=== PATIENT | male | born 1925 | race Caucasian/White ===

== ENCOUNTER 2017-10-22 18:36 | Emergency (ER) | payer MEDICARE ==
[2017-03-05 09:12] VITALS: Wt 74.8 kg
[2017-10-22] MEDS ORDERED: NS(*) 0.9% 500 ML BAG 500 ML IV ONE (18:40)
--- NOTE | 2017-10-22 18:40 | ER Report ---
History and Physical Time Seen By MD: 18:35 HPI/ROS CHIEF COMPLAINT: Dizziness HISTORY OF PRESENT ILLNESS: 89-year-old male brought in by EMS from [employer] [facility] where he was having food. He began to feel dizzy. He went outside to get some air. Patient denies syncope. Patient denies history of seizures. He has history of previous CVAs. EMS notes no change in the stroke scale. He was alert and oriented on their arrival. Patient voices no other complaints. No chest pain, no shortness of breath. Patient has dementia. He's in good spirits and interactive. EMS noted. Borderline hypotension. Patient was given a fluid bolus. REVIEW OF SYSTEMS: Respiratory: No cough, no dyspnea. Cardiovascular: No chest pain, no palpitations. Gastrointestinal: No vomiting, no abdominal pain. Musculoskeletal: No back pain. Allergies: Coded Allergies: Penicillins (Verified Allergy, Unknown, 10/22/17) Home Meds Active Scripts Sodium Chloride (SODIUM CHLORIDE) 1 Gm Tab, 1 TAB PO DAILY, #90 TAB 4 Refills Prov:ELIU BUTLER MD 08/22/17 Linaclotide (Linzess) 72 Mcg Capsule, 1 CAPSULE PO DAILY for 30 Days, #30 CAP 4 Refills Prov:ELIU BUTLER MD 07/31/17 Fluticasone Prop 50 Mcg Ns (FLONASE 50 MCG NS) 16 Gm Girard.susp, 2 SPRAYS NS QDAY for 30 Days, #1 BOT 4 Refills Prov:ELIU BUTLER MD 06/20/17 Tamsulosin Hcl (TAMSULOSIN HCL) 0.4 Mg Cap.er.24h, 1 CAP PO BID, #180 CAP 1 Refill Prov:ELIU BUTLER MD 05/02/17 Melatonin/Pyridoxine HCl (B6) (Melatonin 3 mg Tablet) 1 Each Tablet, 3 MG PO QHS for 90 Days, #90 TAB 6 Refills Prov:ELIU BUTLER MD 04/10/17 Reported Medications Loperamide HCl (Imodium A-D) 2 Mg Capsule, 2 CAP PO PRN Y for DIARRHEA 10/22/17 Aspirin (ASPIRIN) 325 Mg Tablet, 325 MG PO Q4-6H Y for chest pain, TAB 10/22/17 Lactose-Free Food (BOOST) 237 Ml Liquid, 1 BOTTLE PO DAILY 04/18/17 Docusate Sodium (COLACE) 100 Mg Capsule, 50 MG PO DAILY, CAPSULE 02/20/17 Calcium Carbonate (TUMS) 200 Mg Tab.chew, 1-2 TAB PO Q2H Y for HEARTBURN, TAB.CHEW 02/20/17 Mag Hydrox/Al Hydrox/Simeth (MAALOX MAXIMUM STRENGTH SUSP) 355 Ml Oral.susp, 15 ML PO Q4H Y for gastric distress 01/09/17 Magnesium Hydroxide (MILK OF MAGNESIA) 400 Mg/5 Ml Oral.susp, 15-30 ML PO BID Y for CONSTIPATION, BOTTLE 01/09/17 Dextran 70/Hypromellose (Natural Balance Tears Eye Drop) 0.1 %-0.3 % Drops, 1 DROP OP PRN Y for dry eyes 01/09/17 Acetaminophen (TYLENOL) 325 Mg Tablet, 1-2 TAB PO Q4H Y for PAIN OR FEVER 100 OR GREATER, TAB 01/09/17 Cholecalciferol (Vitamin D3) (VITAMIN D) 2,000 Unit Tablet, 2 TAB PO DAILY take 2 tablets to equal 4000 units q day 01/09/17 Levothyroxine Sodium (LEVOTHYROXINE SODIUM) 75 Mcg Tablet, 75 MCG PO QDAY 06/14/13 Pravastatin Sodium (PRAVASTATIN SODIUM) 40 Mg Tablet, 40 MG PO QDAY 06/14/13 Febuxostat (ULORIC) 40 Mg Tablet, 40 MG PO DAILY 06/14/13 Multivitamins W-Minerals/Lut (Centrum Silver Tablet) 1 Tab Tablet, 1 TAB PO DAILY 09/26/10 Past Medical/Surgical History Past, Family, & Social History Past Medical History Reviewed: Yes Neurologic: Reports hx of: dementia (mild) transient ischemic attack (x2) Cardiovascular: Reports hx of: heart block (now has pacer) Musculoskeletal: Reports hx of: gout (no recent attacks, on uloric) Cardiovascular: Reports hx of: pacemaker Reviewed Nurses Notes: Yes Old Medical Records Reviewed: Yes Hx Smoking: No Smoking Status: Former Smoker Hx Substance Use Disorder: No Constitutional Vital Sign - Last 24 Hours 10/22/17 10/22/17 10/22/17 10/22/17 18:39 18:51 18:56 19:29 Temp 97.4 Pulse 60 61 61 Resp 18 16 14 B/P (MAP) 114/98 117/69 (85) Pulse Ox 94 90 95 O2 Delivery Room Air 10/22/17 10/22/17 10/22/17 10/22/17 19:34 19:49 20:00 20:04 Pulse 60 67 54 Resp 15 17 27 B/P (MAP) 103/67 (79) Pulse Ox 89 90 87 10/22/17 10/22/17 10/22/17 10/22/17 20:09 20:24 20:30 20:39 Pulse 60 60 66 Resp 8 20 21 B/P (MAP) 107/71 (83) Pulse Ox 88 87 86 10/22/17 10/22/17 20:52 20:54 Pulse ??? B/P (MAP) 113/71 (85) Pulse Ox 94 Physical Exam General Appearance: The patient is alert, has no immediate need for airway protection and no current signs of toxicity. Alert and oriented 3, vital signs stable, afebrile, pulse ox normal HEENT: Pupils equal and round no injection. TMs normal, oropharynx without redness or exudate, mucous. Membranes are moist Respiratory: Chest is non tender, lungs are clear to auscultation. Cardiac: regular rate and rhythm Gastrointestinal: Abdomen is soft and non tender, no masses, bowel sounds normal. Musculoskeletal: Neck: Neck is supple and non tender. No lymphadenopathy, no JVD Extremities have full range of motion and are non tender. No edema, no calf tenderness Skin: No rashes or lesions. DIFFERENTIAL DIAGNOSIS: After history and physical exam differential diagnosis was considered for altered mental status including but not limited to hypoglycemia, infectious process, electrolyte abnormality, near syncope, hypotension, head injury and intoxicants. Medical Decision Making Data Points Result Diagram: 10/22/17182910/22/17 183 Laboratory Hematology Test 10/22/17 18:30 10/22/17 19:32 Red Blood Count 5.19 M/uL (4.00-5.60) Mean Corpuscular Volume 87.5 fL (80.0-96.0) Mean Corpuscular Hemoglobin 30.0 pg (26.0-33.0) Mean Corpuscular Hemoglobin Concent 34.3 g/dL (32.0-36.0) Red Cell Distribution Width 14.3 % (11.5-14.5) Mean Platelet Volume 9.1 fL (7.2-11.1) Neutrophils (%) (Auto) 65.7 % (39.4-72.5) Lymphocytes (%) (Auto) 17.6 % (17.6-49.6) Monocytes (%) (Auto) 11.6 % (4.1-12.4) Eosinophils (%) (Auto) 4.4 % (0.4-6.7) Basophils (%) (Auto) 0.7 % (0.3-1.4) Nucleated RBC Relative Count (auto) 0.0 /100WBC Neutrophils # (Auto) 5.3 K/uL (2.0-7.4) Lymphocytes # (Auto) 1.4 K/uL (1.3-3.6) Monocytes # (Auto) 0.9 K/uL (0.3-1.0) Eosinophils # (Auto) 0.4 K/uL (0.0-0.5) Basophils # (Auto) 0.1 K/uL (0.0-0.1) Nucleated RBC Absolute Count (auto) 0.00 K/uL Sodium Level 139 mmol/L (137-145) Potassium Level 3.9 mmol/L (3.5-5.0) Chloride Level 100 mmol/L (98-107) Carbon Dioxide Level 25 mmol/L (22-30) Blood Urea Nitrogen 25 mg/dl (9-21) Creatinine 1.80 mg/dl (0.66-1.25) Glomerular Filtration Rate Calc 35.7 Random Glucose 92 mg/dl (75-110) Calcium Level 9.4 mg/dl (8.4-10.2) Total Bilirubin 0.3 mg/dl (0.2-1.3) Aspartate Amino Transf (AST/SGOT) 29 U/L (0-35) Alanine Aminotransferase (ALT/SGPT) 27 U/L (0-56) Alkaline Phosphatase 65 U/L (0-126) Troponin I < 0.012 ng/ml Total Protein 7.1 g/dl (6.3-8.2) Albumin 3.9 g/dl (3.5-5.0) Urine Color Yellow Urine Clarity Slightly-cloudy Urine pH 5.0 pH (4.8-9.5) Urine Specific [place] 1.012 Urine Protein 30 mg/dL (NEGATIVE) Urine Glucose (UA) Negative mg/dL (NEGATIVE) Urine Ketones Negative mg/dL (NEGATIVE) Urine Blood Negative (NEGATIVE) Urine Nitrite Negative (NEGATIVE) Urine Bilirubin Negative (NEGATIVE) Urine Urobilinogen Negative mg/dL (0.2-1.9) Urine Leukocyte Esterase Trace (NEGATIVE) Urine RBC 1 /HPF (0-2/HPF) Urine WBC 3 /HPF (0-5/HPF) Urine Squamous Epithelial Cells Moderate /LPF (</=FEW) Urine Bacteria Negative /HPF (NONE-FEW) Urine Hyaline Casts Few /LPF (NONE-FEW) Urine Mucus Few /HPF (NONE-FEW) Chemistry Test 10/22/17 18:30 10/22/17 19:32 White Blood Count 8.1 k/uL (4.5-11.0) Red Blood Count 5.19 M/uL (4.00-5.60) Hemoglobin 15.6 g/dL (14.0-18.0) Hematocrit 45.4 % (42.0-52.0) Mean Corpuscular Volume 87.5 fL (80.0-96.0) Mean Corpuscular Hemoglobin 30.0 pg (26.0-33.0) Mean Corpuscular Hemoglobin Concent 34.3 g/dL (32.0-36.0) Red Cell Distribution Width 14.3 % (11.5-14.5) Platelet Count 211 K/uL (150-450) Mean Platelet Volume 9.1 fL (7.2-11.1) Neutrophils (%) (Auto) 65.7 % (39.4-72.5) Lymphocytes (%) (Auto) 17.6 % (17.6-49.6) Monocytes (%) (Auto) 11.6 % (4.1-12.4) Eosinophils (%) (Auto) 4.4 % (0.4-6.7) Basophils (%) (Auto) 0.7 % (0.3-1.4) Nucleated RBC Relative Count (auto) 0.0 /100WBC Neutrophils # (Auto) 5.3 K/uL (2.0-7.4) Lymphocytes # (Auto) 1.4 K/uL (1.3-3.6) Monocytes # (Auto) 0.9 K/uL (0.3-1.0) Eosinophils # (Auto) 0.4 K/uL (0.0-0.5) Basophils # (Auto) 0.1 K/uL (0.0-0.1) Nucleated RBC Absolute Count (auto) 0.00 K/uL Glomerular Filtration Rate Calc 35.7 Calcium Level 9.4 mg/dl (8.4-10.2) Total Bilirubin 0.3 mg/dl (0.2-1.3) Aspartate Amino Transf (AST/SGOT) 29 U/L (0-35) Alanine Aminotransferase (ALT/SGPT) 27 U/L (0-56) Alkaline Phosphatase 65 U/L (0-126) Troponin I < 0.012 ng/ml Total Protein 7.1 g/dl (6.3-8.2) Albumin 3.9 g/dl (3.5-5.0) Urine Color Yellow Urine Clarity Slightly-cloudy Urine pH 5.0 pH (4.8-9.5) Urine Specific [place] 1.012 Urine Protein 30 mg/dL (NEGATIVE) Urine Glucose (UA) Negative mg/dL (NEGATIVE) Urine Ketones Negative mg/dL (NEGATIVE) Urine Blood Negative (NEGATIVE) Urine Nitrite Negative (NEGATIVE) Urine Bilirubin Negative (NEGATIVE) Urine Urobilinogen Negative mg/dL (0.2-1.9) Urine Leukocyte Esterase Trace (NEGATIVE) Urine RBC 1 /HPF (0-2/HPF) Urine WBC 3 /HPF (0-5/HPF) Urine Squamous Epithelial Cells Moderate /LPF (</=FEW) Urine Bacteria Negative /HPF (NONE-FEW) Urine Hyaline Casts Few /LPF (NONE-FEW) Urine Mucus Few /HPF (NONE-FEW) Urinalysis Test 10/22/17 19:32 Urine Color Yellow Urine Clarity Slightly-cloudy Urine pH 5.0 pH (4.8-9.5) Urine Specific [place] 1.012 Urine Protein 30 mg/dL (NEGATIVE) Urine Glucose (UA) Negative mg/dL (NEGATIVE) Urine Ketones Negative mg/dL (NEGATIVE) Urine Blood Negative (NEGATIVE) Urine Nitrite Negative (NEGATIVE) Urine Bilirubin Negative (NEGATIVE) Urine Urobilinogen Negative mg/dL (0.2-1.9) Urine Leukocyte Esterase Trace (NEGATIVE) Urine RBC 1 /HPF (0-2/HPF) Urine WBC 3 /HPF (0-5/HPF) Urine Squamous Epithelial Cells Moderate /LPF (</=FEW) Urine Bacteria Negative /HPF (NONE-FEW) Urine Hyaline Casts Few /LPF (NONE-FEW) Urine Mucus Few /HPF (NONE-FEW) EKG/Imaging EKG Interpretation 12 lead EK Rhythm: AV sequential pacemaker, rate 60 bpm Keno: normal QRS: normal ST segments: normal, on comparison to previous EKG dated 02/19/17, no significant change noted Monitor Interpretation: Other Imaging X-ray: Single view portable chest x-ray was obtained. I viewed the images myself on the PACS system. My interpretation of the images is: No infiltrate, no effusion, normal mediastinum, intact pacemaker, comparison to previous chest x-ray 01/09/17, no significant change. The radiologist interpretation had no clinically significant variation from this interpretation. Results: CT scan of the head was obtained. The results of the study are CT Head without contrast Indication: Dizziness. History of previous CVA. Comparison: 02/21/2017. Technique: Axial CT images were obtained through the brain from the skull base to the vertex without administration of IV contrast. Reformatted coronal and sagittal images were also obtained. One of the following dose optimization techniques was utilized in the performance of this exam: automated exposure control; adjustment of the mA and/ or kV according to the patient's size; or use of an iterative reconstruction technique. Specific details can be referenced in the facility's radiology CT exam operational policy. Findings: No evidence of mass, mass effect, or midline shift. No acute intracranial hemorrhage or acute territorial infarction. No extra-axial fluid collection or hydrocephalus. Age-related cerebral atrophy. Periventricular white matter ischemic changes consistent small vessel disease. Each occipital lobe does show area of decreased attenuation consistent previous ischemic event. Small previous ischemic event in the right frontal lobe. The appearance has not changed from previous exam. Resolution the previous right subdural fluid hematoma. The cee/white matter differentiation appears normal. Small bowel previous lacunar infarct is again seen in the left basal ganglia. Bony structures show no fractures or lesions. Leftward deviation nasal septum. Mild mucosal thickening seen in the inferior aspect of both maxillary sinuses which appears similar. The remaining sinuses and mastoids visualized are clear. IMPRESSION: 1. Stable exam showing no acute abnormality. 2. Continued mild bilateral maxillary sinus disease. The study was read by the radiologist. I viewed the images myself on the PACS system. ED Course/Re-evaluation Clinical Indication for ER IV: Hydration, IV Access ED Course Patient was admitted to an examination room. H&P was done. The differential diagnoses was considered. On clinical examination. Patient has a nonfocal neurologic examination. He is alert and oriented 3. He is in good spirits. He voices no complaints. He did note some dizziness. He is unsure if he had another stroke. Stroke scale was negative by EMS. It was negative here. On his examination. Diagnostic study EKG, chest x-ray and head CT were performed which were all unremarkable. Patient has some baseline renal insufficiency and maybe a touch of dehydration. Decision to Disposition Date: Oct 22, 2017 Decision to Disposition Time: 19:37 Depart Departure Latest Vital Signs Vital Signs Date Time Temp Pulse Resp B/P (MAP) Pulse Ox O2 Delivery O2 Flow Rate FiO2 10/22/17 20:54 ??? 94 10/22/17 20:52 113/71 (85) 10/22/17 20:39 21 10/22/17 18:39 97.4 Room Air Impression: Primary Impression: Lightheadedness Additional Impressions: Mild dehydration Chronic renal insufficiency Pacemaker History of CVA (cerebrovascular accident) Condition: Improved Disposition: HOME OR SELF-CARE Referrals: ELIU BUTLER MD (PCP) Patient Instructions: Dizziness (ED) Additional Instructions: Follow-up with your doctor this week if her symptoms recur Problem Qualifiers Additional Impressions: Chronic renal insufficiency Chronic kidney disease stage: unspecified stage Qualified Codes: N18.9 - Chronic kidney disease, unspecified WOLFGANG BERNARD DO Oct 22, 2017 18:40
--- NOTE | 2017-10-22 18:52 | EKG ---
FACILITY: [facility] - [place] PATIENT NAME: SOTERO GAMBLE : [id number] MR: [id number] V: [id number] EXAM DATE: ORDERING PHYSICIAN: WOLFGANG BERNARD TECHNOLOGIST: EDDIE Pham Reason : MARCO ANTONIO Blood Pressure : / mmHG Vent. Rate : 060 BPM Atrial Rate : 060 BPM P-R Int : 178 ms QRS Dur : 196 ms QT Int : 480 ms P-R-T Axes : 090 -83 097 degrees QTc Int : 480 ms AV sequential or dual chamber electronic pacemaker When compared with ECG of 19-FEB-2017 19:59, No significant change was found Confirmed by YUNIOR FELIX ([id number]) on 10/23/2017 6:27:47 AM Referred By: Confirmed By:YUNIOR FELIX
[2017-10-22 18:54] LABS: PLATELET COUNT, AUTOMATED 211 K/uL (150-450)
[2017-10-22] MEDS ORDERED: EMS NS 0.9%(*) 1000 ML BAG 1,000 ML IV ONE (19:05)
[2017-10-22] MEDS ORDERED: ASPI-757 PO (19:19)
[2017-10-22] MEDS ORDERED: LOPE2CAP15 PO (19:19)
--- NOTE | 2017-10-22 20:36 | RADIOLOGY IMAGING REPORT ---
FACILITY: [facility] - [place], [place] PATIENT NAME: Charles Canela : 1925 MR: [id number] V: [id number] EXAM DATE: ORDERING PHYSICIAN: WOLFGANG BERNARD TECHNOLOGIST: Location: [facility] Patient: Charles Canela : 1925 Visit/Account:[id number] Date of Sevice: 10/22/2017 Chest single view: HISTORY: Dizziness, history of CVA x3. COMPARISON: 01/09/2017 FINDINGS: Portable chest 1913 hours: Heart is upper limits of normal in size. Aorta is ectatic and th ere are atherosclerotic changes. Vague bibasilar opacity is new compared to previous accentuated by padma bush lung volumes, atelectasis and/or infiltrate correlate with any symptoms of a pneumonia, this is felt to be less likely however. Upper lungs are clear. Calcified granuloma present in the left upper lobe. Transvenous pacer leads are unchanged. Degenerative changes are present in both shoulders. IMPRESSION: Vague bibasilar opacity, atelectasis versus infiltrate. This is new compared to previous. Report Dictated By: Rina Pollock MD at 10/22/2017 8:31 PM Report E-Signed By: Rina Pollock MD at 10/22/2017 8:33 PM WSN:[id number]
--- NOTE | 2017-10-22 20:44 | RADIOLOGY IMAGING REPORT ---
FACILITY: [facility] - [place] PATIENT NAME: Charles Canela : 1925 MR: [id number] V: [id number] EXAM DATE: ORDERING PHYSICIAN: WOLFGANG BERNARD TECHNOLOGIST: Location: [facility] Patient: Charles Canela : 1925 Visit/Account:[id number] Date of Sevice: 10/22/2017 CT Head without contrast Indication: Dizziness. History of previous CVA. Comparison: 02/21/2017. Technique: Axial CT images were obtained through the brain from the skull base to the vertex without administration of IV contrast. Reformatted coronal and sagittal images were also obtained. One of the following dose optimization techniques was utilized in the performance of this exam: autom ated exposure control; adjustment of the mA and/or kV according to the patient's size; or use of an i terative reconstruction technique. Specific details can be referenced in the facility's radiology CT exam operational policy. Findings: No evidence of mass, mass effect, or midline shift. No acute intracranial hemorrhage or acute territorial infarction. No extra-axial fluid collection or hydrocephalus. Age-related cerebral atrophy. Periventricular white matter ischemic changes consistent small vessel disease. Each occipital lobe does show area of decre ased attenuation consistent previous ischemic event. Small previous ischemic event in the right front al lobe. The appearance has not changed from previous exam. Resolution the previous right subdural fl uid hematoma. The cee/white matter differentiation appears normal. Small bowel previous lacunar infa rct is again seen in the left basal ganglia. Bony structures show no fractures or lesions. Leftward deviation nasal septum. Mild mucosal thickening seen in the inferior aspect of both maxillary sinuses which appears similar. The remaining sinuses and mastoids visualized are clear. IMPRESSION: 1. Stable exam showing no acute abnormality. 2. Continued mild bilateral maxillary sinus disease. Report Dictated By: Heriberto Parisi at 10/22/2017 8:35 PM Report E-Signed By: Heriberto Parisi at 10/22/2017 8:41 PM WSN:[id number]
[2017-10-22 20:52] VITALS: BP 113/71
[2017-10-23] MEDS ORDERED: LEVO75TA73 PO (09:36)
[2017-10-23] MEDS ORDERED: PRAV40TA78 PO (09:36)
== END 2017-10-22 21:02 | disposition home or self-care (01) ==
LOC: ER 18:52
DX: N18.9 Chronic kidney disease, unspecified (principal); E86.0 Dehydration; Z95.0 Presence of cardiac pacemaker; Z86.73 Personal history of transient ischemic attack (TIA), and cerebral infarction without residual deficits
CPT/HCPCS: 70450; 71045; 81001; 82040; 82247; 82310; 82374; 82435; 82565; 82947; 84075; 84132; 84155; 84295; 84450; 84460; 84484; 84520; 85025; 93005; 99285

== ENCOUNTER → 2017-10-22 | Outpatient (CLI) | payer MEDICARE ==
[2017-03-05 09:12] VITALS: BMI 23.7
[~2017-10-22] MED LIST: ACET-1966 PO; AMLO2.5T74 PO; ASP325 PO; ASPI-1471 PO; ASPI-757 PO; AZI250 PO; CALC-515 PO; CHOL10005 PO; CHOL200022 PO; CLI150 PO; DEXT15DR OP; DIPH-911 PO; DOCU-416 PO; FEBU40TA2 PO; FLUT16SP19 NS; FLUT16SP20 NS; GUAI-334 PO; GUAI237L21 PO; HYDR-2966 PO; LACT237L30 PO; LANS15CA54 PO; LEVO-85 PO; LEVO75TA73 PO; LINA72CA PO; LOPE2CAP15 PO; MAG-66 PO; MECL25TA9 PO; MELA1TAB9 PO; MET60GMPT TOP; METH4TAB57 PO; MOM PO; MULT-1 PO; PER PO; PRAV40TA78 PO; SODCTAB PO; TAMS0.4C70 PO; TERA5CAP57 PO; TEST100V6 IM; ZOLP-1 PO
== END ==
LOC: AMB 18:05
PROVIDERS: ATTEND Nurse Practitioner
DX: R56.9 Unspecified convulsions (principal); Z95.0 Presence of cardiac pacemaker
CPT/HCPCS: A0425; A0427